=== PATIENT | female | born 1975 | race Caucasian/White ===

== ENCOUNTER 2020-07-07 21:00 | Emergency (ER) | payer MEDICAID, OTHER ==
[~2020-07-07] VITALS: Ht 157.5 cm; Wt 67.6 kg
[2020-07-08] MEDS ORDERED: ACETAMINOPHEN/CODEINE#3 (300/30mg) TAB PO ONE (00:30)
[2020-07-08] MEDS ORDERED: methylPREDNISolone SOD SUCC 125 MG/2 ML VL IM ONE (00:30)
[2020-07-08] MEDS ORDERED: TETANUS-DIPTH-ACEL PERTUSSIS 0.5ML SYR Tdap IM ONE (01:00)
[2020-07-08 01:03] VITALS: BP 145/34
== END 2020-07-08 01:11 | disposition home or self-care (01) ==
LOC: ER 21:03
DX: S60.467A Insect bite (nonvenomous) of left little finger, initial encounter (principal); W57.XXXA Bitten or stung by nonvenomous insect and other nonvenomous arthropods, initial encounter; Y93.89 Activity, other specified; Y92.89 Other specified places as the place of occurrence of the external cause; Y99.8 Other external cause status
CPT/HCPCS: 96372; 99283; J2930